=== PATIENT | male | born 1995 | race Caucasian/White ===

== ENCOUNTER → 2018-10-10 | Outpatient (CLI) | payer BC ==
--- NOTE | 2018-10-10 14:47 | XR ---
Left shoulder HISTORY: Left shoulder pain 3 views of the left shoulder Bone mineralization, joint spaces and alignment are maintained. Left lung apex as visualized is ryan l. Distal acromion is downturned. IMPRESSION: Correlate for impingement, shoulder MRI may be of benefit.
== END | disposition home or self-care (01) ==
LOC: RADXRYALE 14:11
PROVIDERS: ATTEND Physician Assistant Medical
DX: M25.512 Pain in left shoulder (principal)

== ENCOUNTER → 2024-01-10 | Outpatient (CLI) | payer OTHER ==
--- NOTE | 2024-01-10 14:32 | XR ---
EXAMINATION TYPE: XR toes RT DATE OF EXAM: 01/10/2024 1:37 PM CLINICAL INDICATION:Male, 28 years old with history of [id number] RT TOE PAIN; [facility] COMPARISON: None TECHNIQUE: XR toes RT examined in the AP, oblique, and lateral projections. FINDINGS: No evidence of any acute osseous pathology. No evidence of soft tissue swelling. Joints are preserve d. Degeneration changes throughout the joints of the foot with osteophyte formation and joint space n arrowing findings worse at the first digit metatarsophalangeal joint. IMPRESSION: No evidence of acute fracture. Mild first digit metatarsophalangeal joint osteoarthrosis.
== END | disposition home or self-care (01) ==
LOC: RADXRYALE 13:26
PROVIDERS: ATTEND Physician Assistant Medical
DX: M19.071 Primary osteoarthritis, right ankle and foot (principal)

== ENCOUNTER → 2024-03-04 | Outpatient (CLI) | payer OTHER ==
--- NOTE | 2024-03-04 11:36 | XR ---
EXAMINATION TYPE: XR abdomen 2V DATE OF EXAM: 03/04/2024 10:49 AM CLINICAL INDICATION:Male, 28 years old with history of [id number] LLQ PAIN,ABD DISTENSION; COMPARISON: None. TECHNIQUE: Two views of the abdomen were obtained. FINDINGS: The bowel gas pattern is nonspecific without dilated loops of small or large bowel. There i s no evidence for organomegaly or pneumoperitoneum. The osseous structures are intact. No abnormal calcifications are present. Fecal material and gas are demonstrated throughout the colon and rectum. IMPRESSION: Nonspecific bowel gas pattern without radiographic evidence for acute process.
== END | disposition home or self-care (01) ==
LOC: RADXRYALE 09:02
PROVIDERS: ATTEND Physician Assistant Medical
DX: R10.814 Left lower quadrant abdominal tenderness (principal); R14.0 Abdominal distension (gaseous); K31.89 Other diseases of stomach and duodenum
CPT/HCPCS: 74019